=== PATIENT | female | born 1965 | race Caucasian/White ===

== ENCOUNTER → 2016-09-25 | Day surgery (SDC) | payer MEDICAID ==
[2014-02-19 16:49] VITALS: BMI 35.9
[~2016-09-25] MED LIST: BUPIVACAINE 0.5% 30 ML VIAL ONE; CEFAZOLIN 1 GM VIAL ONE; DEXAMETHASONE 4 MG/ML VIAL IV ONE; FENTANYL 100 MCG/2 ML VIAL IV ONE; FENTANYL 100 MCG/2 ML VIAL IV PRN; GLYCOPYRROLATE 1 MG VIAL IM ONE; HYDROmorphone 1 MG INJECTION IV PRN; KETOROLAC TROMETH 30 MG/ML VIAL IM ONE; LABETALOL 20 MG/4 ML SYRINGE IV PRN; LIDOCAINE 1% 10 ML (METHYLPARABEN FREE) ONE; LIDOCAINE 100 MG PFS IV ONE; MEPERIDINE 25 MG/ML TUBEX IV PRN; MIDAZOLAM 2 MG/2 ML VIAL IV ONE; ONDANSETRON HCL 4 MG ODT TAB PO PRN; ONDANSETRON HCL 4 MG/2 ML VIAL IV PRN; PROMETHAZINE 25 MG/ML VIAL IV PRN; PROPOFOL 200 MG/20 ML VIAL IV ONE; Sodium Bicarbonate (Neut) 2.4 mEq/5 ml vial INF ONE; hydrALAZINE 20 MG/ML VIAL IV PRN
[2016-09-25 07:41] LABS: LEUKOCYTES/URINE NEG (NEGATIVE); NITRITE/URINE NEG (NEGATIVE); RBC/URINE 0-2 (0-5); URINE OCCULT BLOOD NEG (NEG/TRACE); WBC/URINE 0-2 (0-5)
[2016-09-25 07:45] LABS: AUTOMATED BASOPHIL 1.2 % (0-2); AUTOMATED EOSINOPHIL 2.5 % (0-5); AUTOMATED LYMPH 20.8 % (17-44); AUTOMATED MONOCYTE 6.4 % (3-10); AUTOMATED NEUTROPHIL 69.1 % (45-76); MPV 8.5 fL (7.4-10.4)
--- NOTE | 2016-09-25 07:45 | SC.ANESPOS ---
[id number], Hemodynamically Stable, Pain Control Adequate Phase I & II Recovery Complete: Yes Apparent Anesthesia Complication: No : N - Vital Signs Blood Pressure: 131/65 Pulse: 81 Resp Rate: 20 O2 Sat: 99 Temp: 98.7 F
[2016-09-25 07:46] LABS: BLOOD UREA NITROGEN 19 MG/DL (7-17); CALCIUM 9.5 MG/DL (8.4-10.2); CALCULATED OSMOLALITY 270 MOs/Kg (270-290); CHLORIDE 104 mEq/L (98-107); GLUCOSE 96 MG/DL (70-99); SODIUM LEVEL 139 mEq/L (137-146); TOTAL PROTEIN 7.5 G/DL (6.3-8.2)
--- NOTE | 2016-09-25 07:47 | HIM.ANES ---
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) - Focused Review of Systems Cardiac History: Yes: Hx Hypertension, Hx Cardia Arrhythmia (Rythmn monitor ) HEENT: Yes: Removable Dental Work Respiratory: Yes: Hx Asthma Gastrointestinal: Yes: Hx Gastroesophageal Reflux Disease (Controlled on RX) Neurological/Musculoskeletal: Yes: Hx Migraine Smoking Status: Heavy tobacco smoker (5 or more cigarettes/day or daily pipe/ cigar) - Focused Physical Exam NPO since: after Midnight Mallampati: Class II Thyromental Distance: Greater than 3 Neck: Full Range of Motion Dental: Removable Dental Work Cardiovascular/Chest: Normal Respiratory: Decreased breath sounds Any problems with anesthesia, including nausea and vomiting?: No Any relatives with a history of Malignant Hyperthermia?: No Does patient have a history of Malignant Hyperthermia?: No Beta Leanne given (if appropriate): N/A Other: Problem List Problem Status Onset Transient ischaemic attack (TIA), and cerebral infarction without residual deficits Acute Allergies Allergy/AdvReac Type Severity Reaction Status Date / Time acetaminophen [From Percocet] Allergy Itching Verified 02/19/14 16:49 oxycodone HCl [From Percocet] Allergy Itching Verified 02/19/14 16:49 Home Medications Medication Instructions Recorded Last Taken Type Albuterol Sulfate [Proair Hfa] 2 puff INH Q6H PRN 09/22/16 Unknown History Amitriptyline HCl [Elavil] 10 mg PO HS 09/22/16 Unknown History Atorvastatin Calcium [Lipitor] 40 mg PO DAILY 09/22/16 Unknown History Butalb/Acetaminophen/Caffeine 1 each PO Q4H PRN 09/22/16 Unknown History [Eicccu-Wkkfgvnw-Bowl 50-300-40] ClonazePAM [Klonopin] 0.5 mg PO HS 09/22/16 Unknown History Dipyridamole/Aspirin 200/25 1 cap PO BID 09/22/16 Unknown History [Aggrenox] Hydrocodone Bit/Acetaminophen 0.5 - 1 each PO Q8H PRN 09/22/16 Unknown History [Hyden 10-325 Tablet] [id number] Cap 1 tab PO Q12H 09/22/16 Unknown History Pantoprazole Sodium [Protonix] 40 mg PO DAILY 09/22/16 Unknown History Pramipexole [Mirapex] 0.5 mg PO BID 09/22/16 Unknown History Sertraline HCl 100 mg PO DAILY 09/22/16 Unknown History Verapamil HCl [Verapamil ER Pm] 300 mg PO DAILY 09/22/16 Unknown History Height and Weight Patient's weight 196 lb 11.2 oz BMI 35.9 - Anesthetic Plan Anesthesia Type: General ASA Class: 3 -: I have examined this patient and reviewed the medical record. The patient has been assessed prior to anesthesia. Risks and benefits of anesthesia and anesthetic technique options have been discussed and all questions answered. The patient accepts the risk and desires me to proceed with the planned anesthetic.
--- NOTE | 2016-09-25 10:18 | HIMOPRPT ---
DATE OF PROCEDURE: 09/25/16 PREOPERATIVE DIAGNOSIS: Ductal carcinoma in situ of left breast. POSTOPERATIVE DIAGNOSIS: Same, final pathology pending. PROCEDURE: Left needle localized breast biopsy x2 with bracketing of abnormal areas. SURGEON: Marcus Cerda MD. ANESTHESIA: General. COMPLICATIONS: None. SPECIMENS: Portion of lateral left breast tissue to Radiology and then Pathology. PACKINGS AND DRAINS: None. BLOOD LOSS: 2 cc OPERATIVE FINDING AND TECHNIQUE: With consent, the patient was brought to the same-day surgery area at [facility]. The patient underwent localization of the biopsy-proven area of ductal carcinoma in situ via 2 wire bracketing. The patient was then taken back to the operative suite and placed under general anesthesia. The left breast was prepped and draped in usual fashion. A curvilinear incision was made in the outer portion the left breast. Dissection was carried down to the subcutaneous and deeper tissues. A generous portion of the lateral portion of the left breast was excised including the localizing wires. The specimen was marked with anatomic orientation sutures and passed off for radiographic imaging. Dr. Cox did a specimen radiograph and confirmed the resected specimen contained localizing wires, the biopsy clip as well as abnormal calcifications noted. The specimen was then passed off for pathologic characterization. Wound was irrigated and dried. Hemostasis was achieved. Deep, subcutaneous, and subcuticular tissues were injected with 0.5% Marcaine. Skin approximation was accomplished using 4-0 Monocryl in subcuticular fashion. Dermabond, 2 x 2 gauze, and Tegaderm dressings were applied to the wound. The patient tolerated the procedure well with findings as described. At termination of the procedure, all instrument, sponge, and needle counts were correct. Final pathology is pending.
--- NOTE | 2016-09-25 10:33 | DIRPT ---
CLINICAL DATA: Bracketed needle localization of an approximate 2.5-3.0 cm group of calcifications, biopsy-proven DCIS, in the upper outer left breast earlier today. Lumpectomy has just been performed. EXAM: SPECIMEN RADIOGRAPH OF THE LEFT BREAST COMPARISON: Previous exam(s). FINDINGS: Status post excision of the left breast. The entire localization wires, the ribbon shaped tissue marker clip, and the entire group of calcifications are present in the specimen. This was discussed directly with Dr. Cerda in the operating room. IMPRESSION: Specimen radiograph of the left breast. Electronically Signed By: Isac Cox M.D. On: 09/25/2016 10:31
[2016-09-25 11:14] VITALS: BP 131/65
[2016-09-25 11:15] VITALS: PULSE 81; TEMP 98.7
== END ==
LOC: SDC 07:02 → EDSTATUS 09:25
PROVIDERS: ATTEND Surgery Vascular Surgery
PROC: 0HBU0ZX Excision of Left Breast, Open Approach, Diagnostic (ICD-10-PCS; principal; 2016-09-25 09:25)
DX: D05.12 Intraductal carcinoma in situ of left breast (principal); I10 Essential (primary) hypertension; J45.909 Unspecified asthma, uncomplicated; E78.5 Hyperlipidemia, unspecified; K21.9 Gastro-esophageal reflux disease without esophagitis; G43.909 Migraine, unspecified, not intractable, without status migrainosus; F17.210 Nicotine dependence, cigarettes, uncomplicated; E66.9 Obesity, unspecified; Z68.32 Body mass index [BMI] 32.0-32.9, adult; Z79.899 Other long term (current) drug therapy
CPT/HCPCS: 19125; 76098; 80053; 81001; 85025; J0690; J1100; J1885; J2001; J2250; J3010; J3490